=== PATIENT | male | born 1955 | race Caucasian/White ===

== ENCOUNTER 2023-02-23 17:24 | Emergency (ER) | payer MEDICARE, OTHER, SELFPAY ==
--- NOTE | ~2023-02-23 | CT_ITS ---
EXAMINATION: CT brain wo con DATE: 02/23/2023 19:24 INDICATION: fall, posterior scalp hematoma . TECHNIQUE: Computed tomography (CT) of the head was performed without intravenous contrast. The mA wa s adjusted according to patient size. Iterative reconstruction technique was employed. The dose-lengt h product was 605.33 mGy-cm. COMPARISON: None. FINDINGS: No acute intracranial hemorrhage or extra-axial fluid collection. No hydrocephalus, mass, or herniation. No acute ischemic infarct. Small posterior scalp contusion/hematoma near the vertex. Unremarkable dural venous sinus attenuation. No acute osseous abnormality. The aerated spaces are clear. Mild atrophy and chronic white matter change. Atherosclerotic intracranial calcification. IMPRESSION: No acute intracranial process. Reviewed, dictated and finalized at location K. [employer]EDULER
--- NOTE | ~2023-02-23 | CT_ITS ---
EXAMINATION: CT cervical spine wo con DATE: 02/23/2023 19:26 INDICATION: fall TECHNIQUE: Computed tomography (CT) of the cervical spine was performed without intravenous contrast. Automated exposure control and iterative reconstruction technique were employed. The dose-length pro duct was 505.57 mGy-cm. COMPARISON: None. FINDINGS: Vertebral Body Alignment: Intact. Craniocervical and atlantoaxial alignment: Moderate degenerative change. Alignment intact. Osseous structures/fracture: No evidence of a lytic or blastic process in the visualized spine. No e vidence of acute fracture. Bone island in T2. Cervical soft tissues: The paraspinal soft tissues planes are maintained. Degenerative changes: Multilevel moderate degenerative disc disease. Multilevel mild facet arthropath y. Large posterior disc/osteophyte complex at C5-6 causing moderate central canal stenosis. No severe central canal or neural foraminal narrowing. IMPRESSION: No acute fracture or traumatic malalignment in the cervical spine. Reviewed, dictated and finalized at location K. [employer] PROFESSOR
[2023-02-23 17:27] VITALS: BP 165/67; PULSE 109; RESP 19; TEMP 36.7; O2SAT 97
--- NOTE | 2023-02-23 19:19 | ED.GENADULT ---
[facility] - General Adult General Chief complaint: Fall Stated complaint: fall Time Seen by Provider: 02/23/23 18:47 Source: patient Mode of arrival: ambulatory Limitations: no limitations History of Present Illness HPI narrative: This is a 68-year-old male who presents to the ED with chief complaint of a fall occurring today. Patient was walking backwards and his steps. He thought he was on the last step but was actually 2nd last has to step. Reports that he fell backwards onto his lumbar grade reports posterior scalp abrasion and swelling. Denies LOC, numbness, weakness or any other psych pain or injury. Reports a little bit of nausea but no vomiting. Does not take blood thinners. Related Data Home Medications Medication Instructions Recorded Confirmed metformin 1,000 mg tablet 1,000 mg PO BID 03/17/19 03/17/19 metoprolol succinate 50 mg 50 mg PO DAILY 03/17/19 03/17/19 tablet,extended release 24 hr quinapril 20 mg tablet 20 mg PO DAILY 03/17/19 03/17/19 simvastatin 40 mg tablet 40 mg PO DAILY 03/17/19 03/17/19 Allergies Allergy/AdvReac Type Severity Reaction Status Date / Time Penicillins Allergy Intermediate Hives Verified 03/17/19 14:00 Review of Systems Review of Systems: All systems as dictated in [facility] Past Medical History Medical History (Updated 02/24/23 @ 00:00 by David Sprague) HTN (hypertension) Hyperlipidemia Type II diabetes mellitus Surgical History Surgical History (Updated 03/17/19 @ 14:09 by Ann-Marie Chavarria) No history of previous surgery Family History Family History (Updated 03/17/19 @ 18:28 by Viri Boo RN) Father Cerebrovascular accident Congestive heart failure Prostate carcinoma Mother Cerebrovascular accident Sibling Chronic obstructive pulmonary disease Social History Social History (Updated 03/17/19 @ 14:09 by Ann-Marie Chavarria) Smoking status: Never smoker Alcohol intake: never Substance use: never Substance use type: does not use Gender identity (if verbalized by the patient): Male Spiritual care concerns: No Agree to blood products: No Exam Narrative: GENERAL: Well-appearing, well-nourished, and in no acute distress. HEAD: Normocephalic, atraumatic. Mild posterior scalp hematoma with healed abrasion. EYES: PERRLA and EOMI. ENT: Nares clear, no rhinorrhea or epistaxis. Mucous membranes moist. Oropharynx without tonsillar hypertrophy exudate or other lesions. NECK: Supple. No adenopathy or masses. CHEST: No respiratory distress. Clear to auscultation. No wheezes rales or rhonchi HEART: Regular rate and rhythm. No murmur heard. Normal peripheral pulses. ABDOMEN: Soft, nontender, nondistended, normal active bowel sounds. MSK: Normal range of motion. No edema. SKIN: Warm, dry, no rash. NEURO: Alert and oriented x4. No focal deficits. Ambulatory without difficulty. PSYCH: Normal mood and affect. Course Vital Signs Vital signs: Vital Signs Temperature 98.0 F 02/23/23 17:27 Pulse Rate 109 H 02/23/23 17:27 Respiratory Rate 19 02/23/23 17:27 Blood Pressure 165/67 H 02/23/23 17:27 Pulse Oximetry 97 02/23/23 17:27 Oxygen Delivery Room Air 02/23/23 17:27 Temperature 97.9 F 02/23/23 20:08 Pulse Rate 110 H 02/23/23 20:08 Respiratory Rate 19 02/23/23 17:27 Blood Pressure 155/88 H 02/23/23 20:08 Pulse Oximetry 99 02/23/23 20:08 Oxygen Delivery Room Air 02/23/23 17:27 Medical Decision Making MDM Narrative Medical decision making narrative: This is a 68-year-old male who presents to the ED with chief complaint of fall while walking backwards downstairs today. He missed last step and hit his head on the concrete. The fall was mechanical in nature. No LOC. No blood thinners. Vitals are normal. Neurologic exam fully intact. CT scan of the brain and cervical spine are without acute findings. Pt will be discharged in stable condition. Return precautions given and supp
[2023-02-23 20:08] VITALS: BP 155/88; PULSE 110; TEMP 36.6; O2SAT 99
== END 2023-02-23 20:25 | disposition home or self-care (01) ==
PROVIDERS: Emergency Provider Physician Assistant
DX: S09.90XA Unspecified injury of head, initial encounter (principal); E78.5 Hyperlipidemia, unspecified; I10 Essential (primary) hypertension; E11.9 Type 2 diabetes mellitus without complications; Z79.84 Long term (current) use of oral hypoglycemic drugs; W10.9XXA Fall (on) (from) unspecified stairs and steps, initial encounter
CPT/HCPCS: 70450; 72125; 99284